=== PATIENT | female | born 1995 | race African-American/Black ===

== ENCOUNTER 2016-08-24 11:19 | Emergency (ER) | payer SELFPAY ==
[~2016-08-24] VITALS: Ht 165.1 cm; Wt 68.0 kg
[~2016-08-24 11:19] MED LIST: DICY20TA30 PO; FAMO-63 PO; HYDR-971 PO; METR500T4 PO; ONDA4TAB10 PO; ONDA4TAB7 PO
[2016-08-24 11:50] VITALS: BP 134/67
[2016-08-24] MEDS ORDERED: NAPROXEN 500 MG TABLET PO STA (11:50)
[2016-08-24] MEDS ORDERED: CYCLOBENZAPRINE 10 MG TABLET. PO ONE (12:00)
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
[2016-08-24] MEDS ORDERED: NAPR500T8 PO (13:48)
[2016-08-24] MEDS ORDERED: CYCL10TA2 PO (13:48)
== END 2016-08-24 13:53 | disposition home or self-care (01) ==
LOC: ER 11:19
DX: M54.6 Pain in thoracic spine (principal); M25.512 Pain in left shoulder; F12.10 Cannabis abuse, uncomplicated; V49.88XA Car occupant (driver) (passenger) injured in other specified transport accidents, initial encounter; Y93.89 Activity, other specified; Y99.8 Other external cause status; Y92.488 Other paved roadways as the place of occurrence of the external cause
CPT/HCPCS: 72125; 73030; 81025; 99284-25

== ENCOUNTER 2018-05-22 08:58 | Emergency (ER) | payer OTHER ==
[~2018-05-22] VITALS: Ht 165.1 cm; Wt 66.2 kg
[~2018-05-22 08:58] MED LIST changes: +CYCL10TA2 PO; -METR500T4 PO; +METR500T8 PO; +NAPR500T8 PO
[2018-05-22] MEDS ORDERED: KETOROLAC 60 MG/2 ML INJ. IM ONE (09:45)
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
--- NOTE | 2018-05-22 10:40 | PHYS DOC ---
Past Medical History Past Medical History: Other Additional Past Medical Histor: gastritis Past Surgical History: Additional Past Surgical Histo: IUD Alcohol Use: Rarely Drug Use: Marijuana Adult General Chief Complaint Chief Complaint: HEADACHE HPI HPI Patient is a 22 year old female presenting with headache chest pain cough she has sinus congestion she's been sick for 2-3 days it hurts more when she coughs the headache was away when she lays down to sleep at night but happens more when she is coughing sharp pain intermittent mild to moderate symptoms are worsening with time has not tried anything for relief nonradiating Review of Systems Review of Systems Constitutional: Denies fever or chills [] Eyes: Denies change in visual acuity, redness, or eye pain [] Cardiovascular: No additional information not addressed in HPI [] GI: Denies abdominal pain, nausea, vomiting, bloody stools or diarrhea [] All other systems were reviewed and found to be within normal limits, except as documented in this note. Current Medications Current Medications Current Medications Medications (Trade) Dose Ordered Sig/Chirag Start Time Stop Time Status Last Admin Dose Admin Ketorolac Tromethamine (Toradol Im) 30 mg 1X ONCE 05/22/18 09:45 05/22/18 09:46 DC 05/22/18 09:59 30 MG Allergies Allergies Allergies Coded Allergies Type Severity Reaction Last Updated Verified No Known Drug Allergies 02/19/16 No Physical Exam Physical Exam Constitutional: Well developed, well nourished, no acute distress, non-toxic appearance. [] HENT: Normocephalic, atraumatic, bilateral external ears normal, oropharynx moist, no oral exudates, nose normal. [] Eyes: PERRLA, EOMI, conjunctiva normal, no discharge. [] Neck: Normal range of motion, no tenderness, supple, no stridor. [] Cardiovascular:Heart rate regular rhythm, no murmur [] Lungs & Thorax: Bilateral breath sounds clear to auscultation [] CHEST WALL TTP NOTED REPRODUCIBLE Abdomen: Bowel sounds normal, soft, no tenderness, no masses, no pulsatile masses. [] Skin: Warm, dry, no erythema, no rash. [] Neurologic: Alert and oriented X 3, normal motor function, normal sensory function, no focal deficits noted. [] Psychologic: Affect normal, judgement normal, mood normal. [] Current Patient Data Vital Signs Vital Signs Date Time Temp Pulse Resp B/P (MAP) Pulse Ox O2 Delivery O2 Flow Rate FiO2 05/22/18 09:15 98.1 76 20 119/85 (96) 99 Room Air 98.1 Lab Values Laboratory Tests Test 05/22/18 09:38 POC Urine HCG, Qualitative Hcg negative (Negative) EKG EKG [] Radiology/Procedures Radiology/Procedures [] Course & Med Decision Making Course & Med Decision Making Pertinent Labs and Imaging studies reviewed. (See chart for details) []Vitals reassuring chest x-ray negative likely viral bronchitis with chest wall pain and mild nonspecific headache. Toradol was given in ER patient has an IUD C says she is not . REASSURANCE AND RETURN RPECAUTIONS REVIEWED Gildardo Disclaimer Dragvalentina Disclaimer This electronic medical record was generated, in whole or in part, using a voice recognition dictation system. Departure Departure Impression: Primary Impression: Bronchitis Disposition: HOME, SELF-CARE Condition: STABLE Patient Instructions: Bronchitis, [id number] BRAD JAMES MD May 22, 2018 10:40
== END 2018-05-22 10:05 | disposition home or self-care (01) ==
LOC: ER 08:58
DX: J40 Bronchitis, not specified as acute or chronic (principal); R07.89 Other chest pain; R51 Headache
CPT/HCPCS: 71045; 81025; 96372; 99283; J1885